=== PATIENT | female | born 1950 | race Native Hawaiian/Other Pacific Islander ===

== ENCOUNTER 2018-12-23 09:06 | Outpatient (CLI) | payer MEDICARE | END 2018-12-23 09:07 | disposition home or self-care (01) | LOC: C.CTH 09:06 | DX: R55 Syncope and collapse (principal) ==

== ENCOUNTER → 2019-01-11 | Outpatient (CLI) | payer MEDICARE | END | disposition home or self-care (01) | LOC: C.MRIC 14:15 | DX: R55 Syncope and collapse (principal) ==

== ENCOUNTER 2019-02-07 09:34 | Outpatient (CLI) | payer MEDICARE | END 2019-02-07 09:35 | disposition home or self-care (01) | LOC: C.USIC 09:34 | DX: C73 Malignant neoplasm of thyroid gland (principal); E03.9 Hypothyroidism, unspecified ==